=== PATIENT | male | born 1965 | race Caucasian/White ===

== ENCOUNTER 2024-01-11 21:31 | Inpatient (IN) | payer OTHER, MEDICAID ==
[~2024-01-11] VITALS: Ht 172.7 cm; Wt 66.5 kg
[2024-01-11 22:18] LABS: HEMATOCRIT 43.6 % (42.0-52.0); HEMOGLOBIN 14.2 g/dl (13.5-17.5); MEAN CORPUSCULAR HEMOGLOBIN 30.2 pg (27.0-33.0); MEAN CORPUSCULAR HGB CONC 32.6 g/dl (32.0-36.5); MEAN CORPUSCULAR VOLUME 92.8 fl (80.0-96.0); PLATELET COUNT, AUTOMATED 442 10^3/uL (150-450); WHITE BLOOD COUNT 18.1 10^3/uL (4.0-10.0)
[2024-01-11 22:41] LABS: ETHYL ALCOHOL (ETHANOL) < 0.003 % (0.000-0.010)
[2024-01-11 22:42] LABS: CPK CREATINE PHOSPHOKINASE 538 U/L (46-171)
[2024-01-11 22:43] LABS: ALBUMIN 4.6 G/DL (3.2-5.2); ALKALINE PHOSPHATASE 59 U/L (46-116); ALT/SGPT 74 U/L (7.0-40); AST/SGOT 76 U/L (<34); BILIRUBIN,DIRECT 0.4 MG/DL (<0.4); BILIRUBIN,TOTAL 1.1 MG/DL (0.3-1.2); BLOOD UREA NITROGEN 29 MG/DL (9-23); CALCIUM LEVEL 10.2 MG/DL (8.5-10.1); CARBON DIOXIDE LEVEL 15 MMOL/L (20-31); CHLORIDE LEVEL 103 MMOL/L (98-107); CREATININE FOR GFR 1.24 MG/DL (0.70-1.30); GLOMERULAR FILTRATION RATE > 60.0 (>56); GLUCOSE, FASTING 196 MG/DL (60-100); POTASSIUM SERUM 4.5 MMOL/L (3.5-5.1); SALICYLATE LEVEL < 3.0 MG/DL (<30); SODIUM LEVEL 142 MMOL/L (136-145); TOTAL PROTEIN 7.3 G/DL (5.7-8.2)
[2024-01-11 22:52] LABS: HEPATITIS B SURFACE ANTIBODY NEGATIVE (POSITIVE)
[2024-01-11 23:17] LABS: HIV SCREEN CENTAUR SOURCE NEGATIVE (NEGATIVE)
[2024-01-11 23:24] LABS: HEPATITIS C VIRUS ABY INDEX < 0.02 INDEX (<0.8)
[2024-01-12] MEDS: NS 1,000 ML IV ONE ×2 (00:55)
[2024-01-12 01:35] LABS: AMPHETAMINES LEVEL URINE NEGATIVE (NEGATIVE); BARBITURATES URINE NEGATIVE (NEGATIVE); BENZODIAZEPINES URINE NEGATIVE (NEGATIVE); COCAINE METABOLITE URINE NEGATIVE (NEGATIVE); METHADONE URINE NEGATIVE (NEGATIVE); OPIATES URINE NEGATIVE (NEGATIVE); PHENCYCLIDINE URINE NEGATIVE (NEGATIVE)
[2024-01-12 01:55] LABS: CANNABINOIDS URINE POSITIVE (NEGATIVE)
[2024-01-12 05:40] LABS: BLOOD UREA NITROGEN 23 MG/DL (9-23); CALCIUM LEVEL 8.5 MG/DL (8.5-10.1); CARBON DIOXIDE LEVEL 29 MMOL/L (20-31); CHLORIDE LEVEL 110 MMOL/L (98-107); GLOMERULAR FILTRATION RATE > 60.0 (>56); GLUCOSE, FASTING 110 MG/DL (60-100); POTASSIUM SERUM 3.6 MMOL/L (3.5-5.1); SODIUM LEVEL 143 MMOL/L (136-145)
[2024-01-12] MEDS: UNRESOLVED CLARIFICATION ENTRY XX SCH (07:22)
[2024-01-12] MEDS: LORazepam 2 MG/ML 1ML VIAL IM ONE (08:08)
[2024-01-12] MEDS: OLANZapine INTRAMUSCULAR 10MG VIAL IM ONE (08:09)
[2024-01-12] MEDS: diphenhydrAMINE 50MG/ML VIAL IM ONE (08:09)
[2024-01-12] MEDS ORDERED: HOME MED LIST COMPLETE! XX SCH (11:45)
[2024-01-12] MEDS ORDERED: MOM 30ML SUSPENSION UDC PO PRN (13:40)
[2024-01-12] MEDS ORDERED: ACETAMINOPHEN TAB 650MG DOSE (2X325MG) PO PRN (13:40)
[2024-01-12] MEDS ORDERED: IBUPROFEN 400MG TAB PO PRN (13:40)
[2024-01-12] MEDS ORDERED: MAALOX 30 ML SUSP *UDC PO PRN (13:40)
[2024-01-12] MEDS ORDERED: diphenhydrAMINE 25MG CAP PO PRN (13:40)
[2024-01-12 16:28] VITALS: BP 131/82; TEMP 98; O2SAT 100
[2024-01-13 09:15] VITALS: BP 172/89
[2024-01-13] MEDS: LORazepam 2 MG TAB PO STA (09:24)
[2024-01-13] MEDS ORDERED: OLANZapine ORAL DISINTEGRATING TAB 5MG PO PRN (10:15)
[2024-01-13] MEDS: OLANZapine 5 MG TAB PO SCH (21:00)
[2024-01-14 18:35] VITALS: BP 125/75; TEMP 97.6
[2024-01-15 06:11] VITALS: BP 128/84; TEMP 96.9; O2SAT 16
[2024-01-15] MEDS: SERTRALINE HCL 25 MG TABLET PO ONE (12:30)
[2024-01-15 18:05] VITALS: BP 132/83; TEMP 98.7; O2SAT 100
[2024-01-15] MEDS: traZODone 50 MG TAB PO PRN (21:08)
[2024-01-16 06:10] VITALS: BP 151/86; TEMP 97.7; O2SAT 100
[2024-01-16] MEDS: SERTRALINE HCL 50 MG TAB PO SCH (12:14)
[2024-01-16 15:23] VITALS: BP 143/88; TEMP 97.7; O2SAT 97
[2024-01-17 16:05] VITALS: BP 138/94; TEMP 98.3; O2SAT 100
[2024-01-18 06:23] VITALS: BP 135/88; TEMP 97.3; O2SAT 100
[2024-01-18 16:02] VITALS: BP 145/76; TEMP 98.6; O2SAT 100
[2024-01-19 06:14] VITALS: BP 137/73; TEMP 97.7; O2SAT 99
[2024-01-19] MEDS: LORazepam 1 MG TAB PO STA (11:54)
[2024-01-19 23:02] VITALS: BP 137/73; TEMP 97.7; O2SAT 99
[2024-01-20 15:35] VITALS: BP 140/75; TEMP 97.4; O2SAT 99
[2024-01-20] MEDS: OLANZapine 10 MG TAB PO SCH (21:00)
[2024-01-21 06:24] VITALS: BP 159/95; TEMP 96.9; O2SAT 100
[2024-01-21] MEDS: OLANZapine 5 MG TAB PO SCH (08:41)
[2024-01-21 17:56] VITALS: BP 134/74; TEMP 98; O2SAT 100
[2024-01-22 06:26] VITALS: BP 139/92; TEMP 97.1; O2SAT 97
[2024-01-22] MEDS: SERTRALINE 100 MG TAB PO SCH (09:43)
[2024-01-22] MEDS: OLANZapine 5 MG TAB PO SCH (09:43)
[2024-01-22 17:11] VITALS: BP 151/78; TEMP 97.3; O2SAT 99
[2024-01-22 21:36] VITALS: BP 148/88
[2024-01-23 06:15] VITALS: BP 116/77; TEMP 98.4; O2SAT 98
[2024-01-23] MEDS: SERTRALINE HCL 50 MG TAB PO SCH (10:52)
[2024-01-24] MEDS: OLANZapine 10 MG TAB PO SCH (21:00)
[2024-01-25 17:33] VITALS: BP 152/84; TEMP 97.7
[2024-01-25 17:47] VITALS: BP 127/82; TEMP 97.6; O2SAT 98
[2024-01-25] MEDS: OLANZapine 5 MG TAB PO SCH (20:50)
[2024-01-26 06:05] VITALS: BP 122/78; TEMP 98.1; O2SAT 97
[2024-01-26 15:56] VITALS: BP 117/60; TEMP 98.4; O2SAT 100
[2024-01-27 06:38] VITALS: BP 130/62; TEMP 98.3; O2SAT 97
[2024-01-27 16:41] VITALS: BP 95/63; TEMP 98.5; O2SAT 100
[2024-01-28] MEDS: OLANZapine 5 MG TAB PO SCH (08:20)
[2024-01-28 15:48] VITALS: BP 114/65; TEMP 98.1; O2SAT 99
[2024-01-29 06:12] VITALS: BP 106/71; TEMP 97.8; O2SAT 99
[2024-01-29 17:20] VITALS: BP 138/78; TEMP 97.8; O2SAT 99
[2024-01-30 16:43] VITALS: BP 145/86; TEMP 98.4; O2SAT 100
[2024-01-31 05:59] VITALS: BP 134/72; TEMP 97.9; O2SAT 100
[2024-01-31 15:47] VITALS: BP 137/91; TEMP 98.1; O2SAT 98
[2024-01-31] MEDS: OLANZapine 5 MG TAB PO SCH (21:00)
[2024-02-01 06:09] VITALS: BP 129/61; TEMP 98.1; O2SAT 100
[2024-02-01 16:42] VITALS: BP 134/75; TEMP 98.2; O2SAT 100
[2024-02-02 06:10] VITALS: BP 98/58; TEMP 97.9; O2SAT 96
[2024-02-02 15:34] VITALS: BP 118/60; TEMP 98; O2SAT 100
[2024-02-02] MEDS ORDERED: OLAN1TAB16 PO (16:12)
[2024-02-02] MEDS ORDERED: SERT50TA29 PO (16:12)
[2024-02-03 06:15] VITALS: BP 112/74; TEMP 97.9; O2SAT 100
== END 2024-02-03 11:05 | DRG 885 ==
LOC: EDBD 21:31 → M ED 21:31 → M ED INP 01-12 13:38 → M PSY 01-12 16:22
PROVIDERS: ADMIT Student in an Organized Health Care Education/Training Program; ATTEND Psychiatry & Neurology Child & Adolescent Psychiatry
DX: F32.3 Major depressive disorder, single episode, severe with psychotic features (principal); Z78.1 Physical restraint status; Z91.51 Personal history of suicidal behavior; Z63.4 Disappearance and death of family member